=== PATIENT | female | born 1945 | race Caucasian/White ===

== ENCOUNTER 2016-11-29 06:42 | Emergency (ER) | payer MEDICARE, OTHER ==
[2016-11-29 07:53] LABS: RED BLOOD COUNT 4.4 M/UL (4.00-5.10); WHITE BLOOD COUNT 2.3 K/UL (4.5-11.0)
[2016-11-29 08:19] LABS: BUN/CREATININE RATIO 20 (0-10)
== END 2016-11-29 15:26 | disposition home or self-care (01) ==
LOC: ER1 06:42
PROVIDERS: Family Medicine
DX: R10.13 Epigastric pain (principal); R10.33 Periumbilical pain; R73.9 Hyperglycemia, unspecified; D72.819 Decreased white blood cell count, unspecified; R11.2 Nausea with vomiting, unspecified; I10 Essential (primary) hypertension; Z88.0 Allergy status to penicillin; Z79.82 Long term (current) use of aspirin; Z79.899 Other long term (current) drug therapy
CPT/HCPCS: 36415; 76705; 80053; 83605; 83690; 84484; 85025; 96374; 96375; 96376; 99284; C9113; J2405; J7050; Q9962